=== PATIENT | male | born 1955 | race Caucasian/White ===

== ENCOUNTER 2016-10-08 11:19 | Day surgery (SDC) | payer BC ==
[~2016-10-08] VITALS: Ht 172.7 cm; Wt 126.0 kg
[~2016-10-08 11:19] MED LIST: ATENOLOL50 MG PO; CYCLOBENZAPRINE10 MG PO; CYMBALTA30 MG PO; DIAZEPAM5 MG PO; FENTANYL1 EAC2 TD; HYDROCODON-ACE1 EAC5 PO; LO-DOSE ASPIRIN81 M1 PO; LORAZEPAM2 MG PO; LOTREL 10/41 CAPSULE PO; MEDROL4 MG PO; PERCOCET 5/31 TABLET PO; SEROQUEL200 MG PO
[2016-10-08 12:09] VITALS: BP 126/80
[2016-10-08 13:13] LABS: METH RESISTANT S AUREUS PCR NEGATIVE (NEGATIVE)
[2016-10-08 13:14] LABS: PROBE CHECK PASS; SPECIMEN PROCESSING CONTROL PASS
[2016-10-08 18:28] VITALS: BP 119/62
[2016-10-08 20:06] VITALS: BP 117/58
== END 2016-10-08 20:06 | disposition home or self-care (01) ==
LOC: SDC 11:19
PROVIDERS: Neurological Surgery
DX: M51.26 Other intervertebral disc displacement, lumbar region (principal); M21.372 Foot drop, left foot; M54.16 Radiculopathy, lumbar region; Z98.1 Arthrodesis status; E66.9 Obesity, unspecified; I10 Essential (primary) hypertension
CPT/HCPCS: 72100; 76000; 87641; J0131; J0690; J2250; J2930; J3010; J3370; S0020